=== PATIENT | male | born 1995 ===

== ENCOUNTER 2024-08-20 19:27 | Emergency (ER) | payer SELFPAY ==
--- NOTE | ~2024-08-20 | XR_ITS ---
EXAMINATION: XR chest 2V Exam Date/Time: 08/20/2024 19:55 CDT HISTORY: L sided pneumothorax Comparison: None. RESULT: Lines, tubes, and devices: None. Lungs and pleura: Clear. Cardiomediastinal silhouette: Normal. Other: No acute osseous or upper abdominal finding. IMPRESSION: No acute cardiopulmonary process. Reviewed, dictated and finalized at location K.
[2024-08-20 19:31] VITALS: BP 131/89; PULSE 89; TEMP 36.6; O2SAT 100
--- NOTE | 2024-08-21 01:57 | PC.NURSE ---
Patient approached triage desk and stated that he was leaving and there was no need to call his name. Patient advised to follow up with nearest ED fi symptoms worsen.
== END 2024-08-20 20:30 | disposition left against medical advice (07) ==
LOC: ANHED 08-21 02:13
PROVIDERS: Emergency Provider Emergency Medicine
DX: R07.81 Pleurodynia (principal)
CPT/HCPCS: 71046; 99199